=== PATIENT | male | born 1955 | race Two or more races ===

== ENCOUNTER 2017-06-14 17:10 | Emergency (ER) | payer OTHER ==
[~2017-06-14] VITALS: Ht 182.9 cm; Wt 130.6 kg
[~2017-06-14 17:10] MED LIST: GLUCOPHAGE XR500 MG; IRBESARTAN-HCT1 EAC1
== END 2017-06-14 22:40 | disposition home or self-care (01) ==
LOC: ER 17:10
DX: M94.0 Chondrocostal junction syndrome [Tietze] (principal)

== ENCOUNTER 2017-10-11 08:39 | Outpatient (CLI) | payer OTHER | END 2017-10-11 08:50 | disposition home or self-care (01) | LOC: SONOGRAMA 08:39 → MAMO-SONO 08:45 → SONOGRAMA 08:50 | DX: N40.1 Benign prostatic hyperplasia with lower urinary tract symptoms (principal) ==

== ENCOUNTER 2017-12-30 11:04 | Outpatient (CLI) | payer OTHER | END 2017-12-30 11:19 | disposition home or self-care (01) | LOC: LAB 11:04 | DX: D50.8 Other iron deficiency anemias (principal); E03.8 Other specified hypothyroidism; E78.2 Mixed hyperlipidemia; I11.9 Hypertensive heart disease without heart failure; E56.8 Deficiency of other vitamins; N39.0 Urinary tract infection, site not specified; Z12.11 Encounter for screening for malignant neoplasm of colon; R19.5 Other fecal abnormalities; E55.9 Vitamin D deficiency, unspecified; N19 Unspecified kidney failure ==

== ENCOUNTER 2017-12-31 10:27 | Outpatient (CLI) | payer OTHER | END 2017-12-31 10:39 | disposition home or self-care (01) | LOC: LAB 10:27 | DX: D50.8 Other iron deficiency anemias (principal); E03.8 Other specified hypothyroidism; E78.2 Mixed hyperlipidemia; I11.9 Hypertensive heart disease without heart failure; E56.8 Deficiency of other vitamins; N39.0 Urinary tract infection, site not specified; Z12.11 Encounter for screening for malignant neoplasm of colon; E55.9 Vitamin D deficiency, unspecified; N19 Unspecified kidney failure; E11.9 Type 2 diabetes mellitus without complications; R80.8 Other proteinuria; K92.1 Melena; C18.9 Malignant neoplasm of colon, unspecified ==

== ENCOUNTER 2025-02-20 15:03 | Emergency (ER) | payer OTHER ==
[~2025-02-20] VITALS: Ht 180.3 cm; Wt 116.1 kg
[2025-02-20] MEDS ORDERED: ATACAND4 MG (16:22)
[2025-02-20] MEDS ORDERED: GLIMEPIRIDE1 M1 (16:22)
[2025-02-20] MEDS ORDERED: METHYLPREDNISOLONE SOD SUCC 125 MG VIAL IM ONE (16:45)
[2025-02-20] MEDS ORDERED: CEFTRIAXONE SODIUM 1,000 MG VIAL IM ONE (16:45)
[2025-02-20] MEDS ORDERED: CETIRIZINE HCL 10 MG TABLET PO ONE (16:45)
[2025-02-20] MEDS ORDERED: FAMOTIDINE/PF 20 MG/2 ML VIAL IV ONE (16:45)
[2025-02-20 19:54] LABS: BASO % 0.6 % (0.1-1.2); EOS # 0.13 (0.04-0.54); EOS % 2.0 % (0.7-7.0); LYMPH # 1.73 (1.18-3.74); LYMPH % 26.7 % (19.3-53.1); MEAN PLATELET VOLUME 9.20 fl (9.4-12.4); MONO # 0.67 (0.24-0.82); MONO % 10.3 % (4.7-12.5); NEUT # 3.90 (1.56-6.13); NEUT % 60.2 % (34.0-71.1); RED CELL DISTRIBUTION WIDTH 12.3 % (11.6-14.4)
[2025-02-20 19:57] LABS: ERYTHROCYTE SEDIMENTATION RATE 27 mm/hr (0-20)
[2025-02-20 20:32] LABS: ALT/SGPT 52 U/L (12-78); AST/SGOT 35 U/L (15-37); BILIRUBIN TOTAL 0.64 mg/dL (0.3-1.2); BUN CREA RATIO 19 (7.0-25.0); CREATININE SERUM 0.83 mg/dL (0.70-1.30); GFR 92.41; GLOBULINA 3.8 G/DL (2.4-3.5); GLUCOSE FASTING 95 mg/dL (65-100); OSMOLALITY SERUM 277 MOSM/KG (275-295)
[2025-02-20] MEDS ORDERED: PEPCID AC20 MG PO (21:00)
[2025-02-20] MEDS ORDERED: DOXYCYCLINE HY100 M2 PO (21:00)
[2025-02-20] MEDS ORDERED: ALL DAY ALLERGY10 M3 PO (21:00)
== END 2025-02-20 22:54 | disposition home or self-care (01) ==
LOC: ER 15:03
PROVIDERS: Student in an Organized Health Care Education/Training Program
DX: L03.211 Cellulitis of face (principal); Z88.0 Allergy status to penicillin; Z88.2 Allergy status to sulfonamides; Z91.013 Allergy to seafood; E11.9 Type 2 diabetes mellitus without complications; Z79.84 Long term (current) use of oral hypoglycemic drugs; I10 Essential (primary) hypertension; I65.21 Occlusion and stenosis of right carotid artery
CPT/HCPCS: 36415; 70486; 96365; 96372; 99284; J0696; J3490

== ENCOUNTER 2025-02-22 09:58 | Emergency (ER) | payer OTHER ==
[~2025-02-22] VITALS: Ht 182.9 cm; Wt 117.9 kg
[~2025-02-22 09:58] MED LIST changes: +ALL DAY ALLERGY10 M3 PO; +ATACAND4 MG; +DOXYCYCLINE HY100 M2 PO; +GLIMEPIRIDE1 M1; +PEPCID AC20 MG PO
[2025-02-22] MEDS ORDERED: CEFTRIAXONE SODIUM 1,000 MG VIAL IM ONE (13:45)
[2025-02-22] MEDS ORDERED: CLINDAMYCIN PHOSPHATE 150 MG/ML (600mg) IM ONE (13:45)
[2025-02-22] MEDS ORDERED: METHYLPREDNISOLONE SOD SUCC 40 MG VIAL IM ONE (13:45)
[2025-02-22 15:10] VITALS: BP 130/81; O2SAT 99
== END 2025-02-22 15:13 | disposition home or self-care (01) ==
LOC: ER 09:59
DX: L03.213 Periorbital cellulitis (principal); E11.9 Type 2 diabetes mellitus without complications; Z79.84 Long term (current) use of oral hypoglycemic drugs; I10 Essential (primary) hypertension; Z88.2 Allergy status to sulfonamides; Z88.0 Allergy status to penicillin; Z91.013 Allergy to seafood
CPT/HCPCS: 96372; 99282; J0696; J3490